=== PATIENT | male | born 1970 | race Asian ===

== ENCOUNTER → 2017-08-15 | Outpatient (CLI) | payer BC ==
[~2017-08-15] MED LIST: AMLO1CAP5 PO; METO25TA35 PO
== END ==
LOC: STAR 07:55
PROVIDERS: ATTEND Surgery
DX: Z01.818 Encounter for other preprocedural examination (principal)
CPT/HCPCS: 71046; 93005

== ENCOUNTER 2017-08-26 06:33 | Day surgery (SDC) | payer BC ==
[~2017-08-26] VITALS: Ht 167.6 cm; Wt 53.3 kg
[2017-08-26] MEDS ORDERED: LACTATED RINGERS 1,000 ML IV SCH (06:53)
[2017-08-26] MEDS ORDERED: MIDAZOLAM 1 MG/ML, 2ML ONE (08:24)
[2017-08-26] MEDS ORDERED: FENTANYL PF 250 MCG/5ML ONE (08:25)
[2017-08-26] MEDS ORDERED: PROPOFOL 10 MG/ML, 20ML ONE (08:27)
[2017-08-26] MEDS ORDERED: ROCURONIUM 10 MG/ML,10ML ONE (08:27)
[2017-08-26] MEDS ORDERED: NEOSTIGMINE 1 MG/ML, 10ML ONE (08:28)
[2017-08-26] MEDS ORDERED: GLYCOPYRROLATE 0.4 MG/2 ML, 2ML ONE (08:28)
[2017-08-26] MEDS ORDERED: BUPIVACAINE LIPOSOME/PF INFIL ONE ×2 (08:30→09:20)
[2017-08-26] MEDS ORDERED: ACETAMINOPHEN 325 MG TABLET PO PRN (09:00)
[2017-08-26] MEDS ORDERED: PROMETHAZINE 25 MG/ML, 1ML IV PRN (09:00)
[2017-08-26] MEDS ORDERED: OXYcodone 5 MG/5 ML ORAL.SOL UDC PO PRN (09:00)
[2017-08-26] MEDS ORDERED: ONDANSETRON 2MG/ML, 2ML IVPush PRN (09:00)
[2017-08-26] MEDS ORDERED: HYDROmorphone 1 MG/ML, 1ML IV PRN (09:00)
[2017-08-26] MEDS ORDERED: MEPERIDINE/PF 25MG/0.5ML IVPush PRN (09:00)
[2017-08-26] MEDS ORDERED: hydrALAzine 20 MG/ML, 1ML IV PRN (09:00)
[2017-08-26] MEDS ORDERED: LABETALOL 5MG/ML, 20ML IV PRN (09:00)
[2017-08-26] MEDS ORDERED: PROMETHAZINE 12.5 MG SUPP PR PRN (09:00)
[2017-08-26] MEDS ORDERED: ACETAMINOPHEN 650 MG/20.3 ML UDC ONE (09:49)
[2017-08-26] MEDS ORDERED: OXYcodone 5 MG/5 ML ORAL.SOL UDC ONE (09:50)
[2017-08-26] MEDS ORDERED: LABETALOL 5MG/ML, 20ML ONE (09:59)
[2017-08-26] MEDS ORDERED: FENTANYL PF 100 MCG/2ML ONE (10:00)
[2017-08-26] MEDS: FENTANYL PF 100 MCG/2ML IV PRN ×3 (10:00→10:15)
== END 2017-08-26 11:50 ==
LOC: OUT 06:33
PROVIDERS: ATTEND Surgery
DX: K64.2 Third degree hemorrhoids (principal); I10 Essential (primary) hypertension; Z72.89 Other problems related to lifestyle; Z87.891 Personal history of nicotine dependence
CPT/HCPCS: 46255; 88304; C9290; J2250; J2704; J2710; J3010